=== PATIENT | male | born 1960 | race Caucasian/White ===

== ENCOUNTER 2023-11-27 09:48 | Outpatient (REF) | payer BC, SELFPAY ==
--- NOTE | ~2023-11-27 | XR_ITS ---
EXAMINATION: XR LUMBOSACRAL SPINE WITH OBLIQUES CLINICAL INFORMATION: Radiculopathy COMPARISON: None available. TECHNIQUE: AP, both oblique, and lateral views of the lumbar spine. Lateral view of the lumbosacral junction. FINDINGS: There is mild levoscoliosis of lumbar spine vertebral bodies are well aligned and intervertebral discs are preserved. There is mild to moderate shape deformity of L4 vertebral body. There is no evidence of spondylolysis or listhesis. There are changes of facets arthropathy at the level of L5-S1 bilaterally. Sacroiliac joints unremarkable. XR/XR lumbar spine 6V w bending IMPRESSION: Mild changes of arthropathy at the level of L5-S1, mild levoscoliosis and wedging of L4 vertebral body.
== END 2023-11-27 09:49 | disposition home or self-care (01) ==
LOC: HO.XRAY 09:48
PROVIDERS: PCP Family Medicine; Visit Provider Nurse Practitioner Family
DX: M51.16 Intervertebral disc disorders with radiculopathy, lumbar region (principal); M47.817 Spondylosis without myelopathy or radiculopathy, lumbosacral region; M54.50 Low back pain, unspecified
CPT/HCPCS: 72114

== ENCOUNTER 2023-11-27 09:48 | Outpatient (AMB) | payer BC, SELFPAY ==
--- NOTE | 2023-11-27 09:52 | MHC.OFFVIS ---
Vital Signs 11/27/23 10:00 Height 5 ft 11 in Weight 218 lb 8 oz BMI 30.5 BP 127/71 Blood Pressure Location Rt brachial Position Sitting Pulse 63 Pulse Source Pulse Oximeter Pulse Oximetry (%) 99 Oxygen Delivery Method Room Air Intake Visit Reasons: low back pain Intake Note: Pain today 2/10 Allergies scallops Allergy (Intermediate, Verified 11/27/23 23:25) GI upset trazodone Allergy (Unknown, Verified 11/27/23 22:44) Priapism HPI HPI low back pain: Details: Patient is a pleasant 63-year-old male presents today to discuss treatments for right sided sciatica due to L4-L5 bulging discs. Denies any trauma, injury or falls. Patient has been followed at [facility] for back injections (04/22 and 08/23) without benefit. He was deemed non-surgical per Dr. Hansen at [facility] per Neurosurgical evaluation. Most recent lumbar spine MRI was completed 6 months ago, not available for review today. He is currently active with physical therapy and completed 3 sessions so far with minimal improvement. He presents with axial, discogenic and right sided radicular pain which radiates to his right buttock and posterior right lower extremity. Patient reports flare up in his symptoms after recent chiropractic adjustment. His back pain is constant and always there and he has had some sudden onsets of severe back pain to the point of difficulty moving or functioning normally. Patient takes gabapentin and marijuana for sleep. He continues to participate in home exercise program and PT exercises. Today his pain is minimal and is rated at 2/10. Denies any fever, abdominal or groin pain, foot drop, weakness, bladder or bowel dysfunction, or saddle anesthesia. Oswestry Low Back Disability=10 (mild disability) Location: Lower back radiates right posterior leg Duration: Chronic pain for many years, worsening since last summer Characteristics of symptom or complaint: Aching, tugging, tight, radiating, pinching, cramping, heavy, sore Aggravating or associated factors: Movements, prolonged sitting, ADLs, walking, bending Relieving factors: Heat/cold therapy, gabapentin, Ibuprofen Treatment: PT, acupuncture, massage therapy, chiropractor therapy, injrections at [facility] Medical History (Updated 11/27/23 @ 23:36 by GERMAN Barrera) Exostosis of both external ear canals Chronic insomnia Benign prostatic hyperplasia History of malignant melanoma Tubular adenoma of colon GERD (gastroesophageal reflux disease) Onychomycosis of toenail Low back pain Surgical History H/O melanoma excision (~2013) Social History Alcohol intake: current Alcohol intake frequency: a few times a week Alcohol type: beer and hard liquor Patient Tobacco Use Status: Former Tobacco user Cigarette Packs Per Day: 0.5 Substance Use Type: Marijuana Substance Use Frequency: Weekly Review of Systems Const All systems reviewed & are unremarkable except as noted in HPI and below Physical Exam Vital Signs: Last Vital Signs Pulse 63 11/27/23 10:00 BP 127/71 11/27/23 10:00 Pulse Ox 99 11/27/23 10:00 Oxygen Delivery Method Room Air 11/27/23 10:00 BMI result Body Mass Index 30.5 General: Appears afebrile. Alert and oriented. Mood and affect appropriate. Follows and participates in conversation appropriately. Respiratory effort is unlabored. No cough. Able to transition from sit to stand unassisted. Ambulates with bilaterally normal heel strike and toe off, increased pain with heel standing, reports mild imbalance on RLE Back/Spine/Pelvis Other: Patient is able to walk and stand on heels and tip toes with mild difficulty on the right demonstrating good motor tone. No limping. Can flex forward to 70-75 degrees and extend to 5-10 degrees before experiencing lumbar pain. Demonstrates 5/5 left and 4/5 right strength of quadriceps bilaterally as well as flexion/dorsiflexion of bilateral feet against resistance. 2+ pedal pulses bilaterally. Seated straight leg rise with dorsiflexion positive on the right. +2 left and +1 right patellar and achilles reflexes bilaterally. Facet loading test positive bilaterally. Yordan?s, Pelvic compression and Stinchfield tests are negative bilaterally. No groin pain with I/E hip rotations. Valsalva maneuver negative. Cervical Spine: cervical ROM normal, No cervical muscular tenderness and No Cervical spine tenderness Thoracic/Lumbar Spine: thoracic and lumbar spine normal to inspection, No Thoracic/lumbar spine scar(s), Lasegue's sign positive on the right and localized, pain with thoraco-lumbar ROM, paraspinal muscle tenderness, thoraco-lumbar ROM limited, No thoracic spinal tenderness and lumbar spinal tenderness (L4-S1) Pelvis: buttock tenderness on the right Sacroiliac joints: bilaterally nontender Results Reviewed Results Reviewed: No imaging reports are available for review. Assessment & Plan Assessment & Plan (1) Lumbar disc herniation with radiculopathy: Code(s): M51.16 - Intervertebral disc disorders with radiculopathy, lumbar region Category: Medical (2) Lumbosacral spondylosis: Code(s): M47.817 - Spondylosis without myelopathy or radiculopathy, lumbosacral region Category: Medical (3) Low back pain: Code(s): M54.50 - Low back pain, unspecified Category: Medical Plan Medical release request sent to [facility] in [facility] for recent lumbar spine MRI and neurosurgical evaluation. We will obtain flexion and extension lumbar views to assess degree of degenerative changes, any subluxation, listhesis, compression fractures or pars defects. Patient is interested in another neurosurgical evaluation for second opinion. His back pain is constant and always there and he has had some sudden onsets of severe back pain to the point of difficulty moving or functioning normally. We also discussed neuromodulation, RFA, therapeutic and diagnostic injections to address axial, discogenic and radicular symptoms. Informational pamphlet provided. Script provided for lidocaine patches. Continue gabapentin, consider mild increase for radicular symptoms. All questions and concerns have been answered and patient agreed with the plan follow-up for x-ray/[facility] records review and sooner as needed. Orders: Orders XR lumbar spine 6V w bending 11/27/23 M47.817 - Spondylosis without myelopathy or radiculopathy, lumbosacral region, M51.16 - Intervertebral disc disorders with radiculopathy, lumbar region Medications: New lidocaine 5% 1 patch topical DAILY 30 ea 3RF pain 30 days M47.817 - Spondylosis without myelopathy or radiculopathy, lumbosacral region, M51.16 - Intervertebral disc disorders with radiculopathy, lumbar region Coding Level of Care Code New Pt Level 4 (56587) Diagnoses Lumbar disc herniation with radiculopathy M51.16 Lumbosacral spondylosis M47.817 Low back pain M54.50
[2023-11-27 10:00] VITALS: BP 127/71; PULSE 63; O2SAT 99; BMI 30.5
== END 2023-11-27 10:55 | disposition home or self-care (01) ==
PROVIDERS: PCP Family Medicine; Visit Provider Nurse Practitioner Family
DX: M51.16 Intervertebral disc disorders with radiculopathy, lumbar region (principal); M47.817 Spondylosis without myelopathy or radiculopathy, lumbosacral region; M54.50 Low back pain, unspecified
CPT/HCPCS: 99204